=== PATIENT | female | born 1990 | race African-American/Black ===

== ENCOUNTER 2016-12-01 23:43 | Emergency (ER) | payer OTHER ==
[~2016-12-01] VITALS: Ht 165.1 cm; Wt 99.8 kg
--- NOTE | 2016-12-01 23:43 | NUR ---
Patient to ER bed 5 to gown for evaluation. Side rails up. Report given to CHENCHO Alberto.
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
[2016-12-01 23:58] VITALS: BP_SYST 167
--- NOTE | 2016-12-02 | NUR ---
ER at bedside examining patient.
--- NOTE | 2016-12-02 00:05 | NUR ---
HESPERIA EPRP CONTCTED TO BEGIN TRANSFER ARRANGEMENT TO [facility]. RELAYED PT INFO . AWAITING REPLY.
--- NOTE | 2016-12-02 00:10 | NUR ---
Patient screaming and yelling, "Fuck you bitches, fuck you all!" "You want to see 5150, I'll show you 5150," and thrashing around in bed, attempting to tip bed over. MD aware.
--- NOTE | 2016-12-02 00:15 | NUR ---
Patient non-cooperative, throwing bed desouza , and refusing to give urine. Patient behaving in very aggressive and threatening manner, at this time safety of staff is of high concern, no invasive procedures to be attempted until patient is more compliant: MD aware unable to get IV and Urine collection. No acute distress noted. Will continue to monitor.
[2016-12-02 00:36] LABS: BASOPHILS # (AUTO) 0.1 K/uL (0.0-0.2); EOSINOPHILS # (AUTO) 0.1 K/uL (0.0-0.4); HEMATOCRIT 36.6 % (36-48); HEMOGLOBIN 12.2 g/dL (12.0-16.0); LYMPHOCYTES # (AUTO) 1.7 K/uL (1.0-5.5); LYMPHOCYTES % (AUTO) 26.2 % (20.5-51.5); MEAN CORPUSCULAR HEMOGLOBIN 24 pg (27-31); MEAN CORPUSCULAR HGB CONC 33 % (32-36); MEAN CORPUSCULAR VOLUME 72 fL (79.0-98.0); MONOCYTES # (AUTO) 0.4 K/uL (0.0-1.0); MONOCYTES % (AUTO) 6.5 % (1.7-9.3); NEUTROPHILS # (AUTO) 4.3 K/uL (1.8-7.7); NEUTROPHILS % (AUTO) 65.3 % (40.0-70.0); PLATELET COUNT (AUTO) 243 K/uL (130-430); RED BLOOD CELL COUNT(AUTO) 5.09 MIL/uL (4.2-6.2); RED CELL DISTRIBUTION WIDTH 13.3 % (9.0-15.0); WHITE BLOOD COUNT (AUTO) 6.6 K/uL (4.8-10.8)
[2016-12-02 00:45] LABS: CALCIUM 8.4 mg/dL (8.4-11.0); CREATININE 0.96 mg/dL (0.55-1.30); POTASSIUM 3.6 mmol/L (3.5-5.1)
[2016-12-02 00:48] LABS: INR 1.1 (0.8-1.2); PROTHROMBIN TIME 11.7 SECS (9.5-12.5)
[2016-12-02 00:51] LABS: ALBUMIN 3.6 g/dL (3.4-4.8); TOTAL BILIRUBIN 0.2 mg/dL (0.0-1.0); TOTAL PROTEIN, SERUM 7.2 g/dL (6.4-8.3)
[2016-12-02] MEDS ORDERED: LORazepam 2 MG/ML VIAL IM ONE (01:00)
[2016-12-02] MEDS ORDERED: LORazepam 2 MG/ML VIAL (FOR ER USE) ONE (01:04)
--- NOTE | 2016-12-02 01:30 | NUR ---
Patient yelling and cursing at law enforcement officers at bedside.
--- NOTE | 2016-12-02 02:30 | NUR ---
Patient resting in bed, urine collection attempted and patient threw bed desouza at staff. Patient also stated she will "pull out anything you put on me!" made aware.
--- NOTE | 2016-12-02 02:51 | NUR ---
RECIEVED CALL FROM DR. KEMP. CALL FORWARDED TO DR. SIMMS. WE REICEVED AUTHORIZATION FOR OUR MEDICAL TREATMENT. AUTHORIZATION #[id number] PER DR. KEMP THE PT'S IS INSURANCE IS A MANAGED [facility] AND THAT ONCE THE PT'S ETOH REACHES AN ACCPETABLE LEVEL, THE PT CAN BE TRANSFERRED TO ANY [facility] CONTRACTED FACILITY.
--- NOTE | 2016-12-02 03:30 | NUR ---
Patient sleeping in bed, no acute distress noted. Will continue to monitor.
--- NOTE | 2016-12-02 04:30 | NUR ---
Patient resting in bed, sitting up occasionally and shouting at law enforcement officers outside room.
--- NOTE | 2016-12-02 05:30 | NUR ---
Patient remains uncooperative with urine collection, throwing bed desouza at staff members. MD remains aware of patient condition.
--- NOTE | 2016-12-02 07:04 | NUR ---
Report given to CHENCHO Justin. All care endorsed.
--- NOTE | 2016-12-02 07:05 | NUR ---
Security called to wand patient. 2 sherriffs with patient. Patient in stable condition, sleeping in bed, rise and fall of chest noted.
--- NOTE | 2016-12-02 07:15 | NUR ---
patient refusing vital signs, MD aware
--- NOTE | 2016-12-02 07:22 | NUR ---
No suicidal or homicidal ideation per patient or noted. Monitoring closely.
--- NOTE | 2016-12-02 07:25 | NUR ---
Security wanded patient. No contraband found.
--- NOTE | 2016-12-02 07:30 | NUR ---
Patient refusing to remove t-shirt and underwear to gown. MD and security aware. Patient resting calmly. On video monitor. 2 [facility] monitoring patient.
--- NOTE | 2016-12-02 07:31 | NUR ---
Suicide assessment and safety checklist done and placed in chart.
[2016-12-02 07:42] LABS: BILIRUBIN,URINE NEGATIVE (NEGATIVE); BLOOD, URINE NEGATIVE (NEGATIVE); CLARITY/URINE CLEAR (CLEAR); COLOR,URINE YELLOW (YELLOW); GLUCOSE,URINE NEGATIVE (NEGATIVE); KETONES,URINE NEGATIVE (NEGATIVE); LEUKOCYTE ESTERASE ,URINE NEGATIVE (NEGATIVE); NITRITE, URINE NEGATIVE (NEGATIVE); PH,URINE 5.5 (5.0-8.0); PROTEIN URINE TRACE (NEGATIVE); UROBILINOGEN,URINE 0.2 (0.2-1.0)
[2016-12-02 07:59] LABS: BARBITURATE, URINE NEGATIVE (NEG <=200); BENZODIAZEPINE, URINE NEGATIVE (NEG <=150); CANNABINOID, URINE POSITIVE (NEG <=50); COCAINE, URINE NEGATIVE (NEG <=150); METHAMPHETAMINES SCREEN,URINE NEGATIVE (NEG <=500); OPIATE, URINE NEGATIVE (NEG <=100); PHENCYCLIDINE SCREEN,URINE NEGATIVE (NEG <=25); UR TRICYCLIC ANTIDEPRESSANTS NEGATIVE (NEG <=300); URINE AMPHETAMINE NEGATIVE (NEG <=500); URINE METHADONE NEGATIVE (NEG <=200); URINE OXYCODONE SCREEN NEGATIVE (NEG <=100); URINE PROPOXYPHENE SCREEN NEGATIVE (NEG <=300)
--- NOTE | 2016-12-02 08:09 | NUR ---
Patient provided regular safety tray per MD order. Does not want to eat food at this time.
--- NOTE | 2016-12-02 09:30 | NUR ---
No suicidal or homicidal ideation per patient or noted. Monitoring continuously.
--- NOTE | 2016-12-02 10:00 | NUR ---
Patient in stable conditiion, officers at bedside
--- NOTE | 2016-12-02 10:00 | NUR ---
patient refusing vital signs, MD aware
--- NOTE | 2016-12-02 10:40 | NUR ---
Social Service Note: [employer] CENTER REPRESENTATIVE was contacted to assist with psych placement for pt. [facility] has contacted: Dalia Motta-spoke to [facility]-they are full but expecting discharges; pt's information was faxed. Sallie Mcconnell- spoke to Alesia-no beds. Dalia Paul-spoke to Timothy-no beds. [facility]-spoke to Arie-no beds. [facility]-spoke to Ortensia-no beds; faxed information. Antoinette Elise-left message for intake. [facility]-spoke to Aislinn-no beds. [facility]-spoke to Chelsie-no long LPS designated, will not take pt's on a hold. [facility]-spoke to intake; faxed pt's information for review.
[2016-12-02] MEDS ORDERED: LORazepam 2 MG/ML VIAL (FOR ER USE) IM ONE ×2 (11:00→12:45)
[2016-12-02] MEDS ORDERED: DIPHENHYDRAMINE INJ 50 MG/ML VIAL IM ONE ×2 (11:00→12:45)
[2016-12-02] MEDS ORDERED: HALOPERIDOL LACTATE 5 MG/ML VIAL IM ONE ×2 (11:00→12:45)
--- NOTE | 2016-12-02 11:06 | NUR ---
Patient pacing in room. Dr. Cisneros aware.
--- NOTE | 2016-12-02 11:30 | NUR ---
No suicidal or homicidal ideation per patient or noted.
--- NOTE | 2016-12-02 11:35 | NUR ---
Patient screaming at metal turner and others, pacing, not remaining in room. aware. car packer and self at bedside with jose luis
--- NOTE | 2016-12-02 11:59 | NUR ---
Patient continues to scream and curse at others, pacing and stating she is going to leave. MD aware.
[2016-12-02] MEDS ORDERED: KETAMINE HCL 500 MG/10 ML VIAL IM ONE (12:00)
--- NOTE | 2016-12-02 12:00 | NUR ---
Jennifer williamson in ED - 12/02/16 at 1840 by RAYRAY Patient provided safety lunch tray. Does not want to eat.
--- NOTE | 2016-12-02 12:02 | NUR ---
MD aware of elevated blood pressure.
--- NOTE | 2016-12-02 12:05 | NUR ---
Dr. Cisneros aware that cant place patient on monitor due to suicide precautions, EMT yanira remaining at bedside with patient. Intermittent vitals taken with supervision.
--- NOTE | 2016-12-02 12:09 | NUR ---
Patient in stable condition, in bed calm but awake. Watching tv. Self and Bao EMT at bedside.
--- NOTE | 2016-12-02 12:29 | NUR ---
Patient in stable condition, no respiratory distress noted. Awake but calm. Heart rate elevated following Ketamine-MD aware. Monitoring closely. Addendum: 12/02/16 at 1841 by RAYRAY Denies any heart palpitations or chest pain/discomfort.
--- NOTE | 2016-12-02 12:45 | NUR ---
No suicidal or homicidal ideation per patient or noted.
--- NOTE | 2016-12-02 12:51 | NUR ---
Patient in stable condition, awake. EMT yanira remaining with patient.
[2016-12-02] MEDS ORDERED: OLANZapine IntraMuscular 10 MG VIAL (FOR I.M. INJECTION ONLY) IM ONE (13:00)
--- NOTE | 2016-12-02 13:56 | NUR ---
Patient sleeping in bed, Bao EMT remains at bedside
[2016-12-02 14:00] VITALS: BP_SYST 148
--- NOTE | 2016-12-02 14:30 | NUR ---
Patient sleeping in bed, EMT Bao at bedside, rise and fall of chest noted.
--- NOTE | 2016-12-02 14:55 | NUR ---
Social Service Note: SERVICE TRANSFORMER REPAIR SUPERVISOR spoke to [facility] and they stated that they gave the room information to Jacob in the ED. Pt will be going to [place] Unit 1; room 1106A; under Dr. Saavedra. Report number: [id number]. Transportation has been set up by [facility] and will be picking up pt at 4:00pm.
--- NOTE | 2016-12-02 15:30 | NUR ---
Report given to Richa at [facility] unit 1. All questions answered. Notified that ambulance arrived early (here now).
== END 2016-12-02 15:30 ==
LOC: SED 23:43
DX: F29 Unspecified psychosis not due to a substance or known physiological condition (principal); R45.851 Suicidal ideations; F10.129 Alcohol abuse with intoxication, unspecified; F15.10 Other stimulant abuse, uncomplicated; F31.9 Bipolar disorder, unspecified
CPT/HCPCS: 36415; 80053; 80307; 81003; 81025; 82150; 83690; 85025; 85610; 96372; 99285; G0482; J1200; J1630; J2060; J3490